=== PATIENT | male | born 1935 | race Caucasian/White ===

== ENCOUNTER 2021-10-07 07:52 | Emergency (ER) | payer MEDICARE, OTHER ==
[2021-10-07] MEDS ORDERED: Morphine 2 MG/ML VIAL ONE (11:02)
== END 2021-10-07 13:26 | disposition short-term general hospital (02) ==
LOC: ERS 07:52
DX: A41.9 Sepsis, unspecified organism (principal); N39.0 Urinary tract infection, site not specified; F03.90 Unspecified dementia, unspecified severity, without behavioral disturbance, psychotic disturbance, mood disturbance, and anxiety; I48.91 Unspecified atrial fibrillation
CPT/HCPCS: 96374; J2270